=== PATIENT | female | born 1990 | race Hispanic/Latino ===

== ENCOUNTER 2023-01-07 04:48 | Observation (INO) | payer SELFPAY ==
[2023-01-07] MEDS ORDERED: HYDROmorphone 0.5 MG/0.5 ML SYRINGE ONE (05:07)
[2023-01-07] MEDS ORDERED: Piperacillin/Tazobactam 3.375 GM VIAL ONE (05:48)
[2023-01-07 05:49] LABS: ALT (SGPT) 15 U/L (8-55); AST (SGOT) 16 U/L (5-34); Albumin 3.9 g/dL (3.5-5.0); Alkaline Phosphatase 53 U/L (40-110); Anion Gap 10 mmol/L (10-20); BUN (Urea Nitrogen) 11 mg/dL (7.0-18.7); Bilirubin, Total 0.5 mg/dL (0.2-1.2); Calc. Creatinine Clearance 0 mL/min (70-130); Calcium 8.5 mg/dL (7.8-10.44); Carbon Dioxide 23 mmol/L (22-29); Chloride 109 mmol/L (98-107); Estimated GFR 99; Globulin 2.7 g/dL (2.4-3.5); Glucose 116 mg/dL (70-105); Potassium 3.9 mmol/L (3.5-5.1); Protein, Total 6.6 g/dL (6.0-8.3); Sodium 138 mmol/L (136-145)
[2023-01-07] MEDS ORDERED: traMADol HCl 50 MG TAB PO PRN (07:25)
[2023-01-07] MEDS ORDERED: Morphine 2 MG/ML VIAL SLOW IVP PRN (07:40)
[2023-01-07 08:05] LABS: #Eosinphils 0.1 thou/uL (0.0-0.7); #Neutrophils 7.6 thou/uL (1.40-6.50); %Basophils 0.3 % (0.0-1.0); %Lymphocytes 13.4 % (21.0-51.0); %Monocytes 9.5 % (0.0-10.0); %Neutrophils 75.5 % (42.0-75.0); Hematocrit 39.9 % (36.0-47.0); Hemoglobin 12.8 g/dL (12.0-16.0); Mean Corpuscular HGB CONC 32.1 g/dL (32.0-36.0); Mean Corpuscular Hemoglobin 28.7 pg (27.0-31.0); Mean Corpuscular Volume 89.5 fl (78.0-98.0); Mean Platelet Volume 12.1 fL (7.4-10.4); Platelet Count 168 10x3/uL (130-400); RBC Distribution Width 14.6 % (11.5-14.5); Red Blood Cell (RBC) Count 4.46 mill/uL (4.20-5.40)
[2023-01-07 08:27] LABS: INR-International Normal Ratio 1.1; PTT 33.2 sec (22.9-36.1); Prothrombin Time 14.7 sec (12.0-14.7)
[2023-01-07 08:30] LABS: ALT (SGPT) 16 U/L (8-55); AST (SGOT) 15 U/L (5-34); Albumin 4.3 g/dL (3.5-5.0); Alkaline Phosphatase 55 U/L (40-110); Bilirubin, Direct 0.4 mg/dL (0.1-0.3); Bilirubin, Total 0.6 mg/dL (0.2-1.2); Protein, Total 6.8 g/dL (6.0-8.3)
[2023-01-07] MEDS: Dextrose 5 %-0.45 % NaCl 1,000 ML IV SCH ×2 (08:40→18:00)
[2023-01-07] MEDS ORDERED: Senokot S 8.6-50 MG TAB PO SCH (09:00)
[2023-01-07] MEDS ORDERED: Polyethylene Glycol 3350 17 GM Packet PO SCH (09:00)
[2023-01-07] MEDS ORDERED: Piperacillin/Tazobactam 3.375 GM in Sodium Chloride 0.9% 100 ML IVPB SCH (10:00)
[2023-01-07 10:05] VITALS: BMI 34.9
[2023-01-07] MEDS ORDERED: fentaNYL PF 100 MCG/2 ML SYRINGE ONE (11:25)
[2023-01-07] MEDS ORDERED: SUGAMMADEX SODIUM 200 MG/2 ML VIAL ONE (11:26)
[2023-01-07] MEDS ORDERED: Famotidine/PF 20 mg/2ml Vial ONE (11:26)
[2023-01-07] MEDS ORDERED: EPINEPHrine 1 MG/ML AMP ONE (11:36)
[2023-01-07] MEDS ORDERED: Iopamidol 30 ML ONE (11:36)
[2023-01-07] MEDS ORDERED: Lidocaine 1% (PF) 30 ML VIAL ONE (11:36)
[2023-01-07] MEDS ORDERED: Bupivacaine PF 0.5% 30 ML VIAL ONE (11:36)
[2023-01-07] MEDS ORDERED: traMADol HCl 50 MG TAB PO SCH (12:00)
[2023-01-07] MEDS ORDERED: Rocuronium Bromide 10 MG/ML (10ML VIAL) ONE (12:17)
[2023-01-07] MEDS ORDERED: Glycopyrrolate 0.2 MG/ML 5 ML SYRINGE ONE (12:17)
[2023-01-07] MEDS ORDERED: Ondansetron PF 4 MG/2 ML Vial ONE (12:17)
[2023-01-07] MEDS ORDERED: Lidocaine 1% PF 5 ML VIAL ONE (12:17)
[2023-01-07] MEDS ORDERED: NEOSTIGMINE 3 MG/3 ML SYR 3 MG/3 ML SYRINGE ONE (12:17)
[2023-01-07] MEDS ORDERED: PROPOFOL 200 MG/20 ML VIAL ONE (12:17)
[2023-01-07] MEDS ORDERED: Dexamethasone 20 MG/5 ML VIAL ONE (12:17)
[2023-01-07] MEDS ORDERED: Ketorolac Tromethamine 30 MG/ML VIAL ONE (12:17)
[2023-01-07] MEDS ORDERED: HYDROmorphone 2 MG/ML VIAL SLOW IVP PRN (12:47)
[2023-01-07] MEDS ORDERED: Promethazine HCl 25 MG/ML VIAL IM PRN (12:47)
[2023-01-07] MEDS ORDERED: Ondansetron HCl/PF 4 MG/2 ML Vial IVP PRN (12:47)
[2023-01-07] MEDS ORDERED: Meperidine HCl/PF 25 MG/ML VIAL SLOW IVP PRN (12:47)
[2023-01-07 16:13] VITALS: BP 121/58; TEMP 98.3
[2023-01-07] MEDS ORDERED: FLU VACC QS2023-24(6MOS UP)/PF 60 MCG/0.5 ML SYRINGE IM ONE (18:00)
== END 2023-01-07 17:55 | disposition home or self-care (01) ==
LOC: ERS 04:48 → SJJU 05:55
PROVIDERS: ADMIT Specialist; ATTEND Specialist
PROC: 0FT44ZZ Resection of Gallbladder, Percutaneous Endoscopic Approach (ICD-10-PCS; principal; 2023-01-07)
PROC: BF13YZZ Fluoroscopy of Gallbladder and Bile Ducts using Other Contrast (ICD-10-PCS; 2023-01-07)
DX: K80.12 Calculus of gallbladder with acute and chronic cholecystitis without obstruction (principal); K83.8 Other specified diseases of biliary tract
CPT/HCPCS: 36415; 47532; 76705; 80053; 85025; 85610; 85730; 86850; 86900; 86901; 88304; 96365; 96375; 96376; C1889; G0378; J0171; J1100; J1170; J1885; J2001; J2272; J2405; J2543; J2704; J3490; J7042; Q9967; S0020; S0028